=== PATIENT | male | born 1950 | race Caucasian/White ===

== ENCOUNTER 2021-07-12 11:46 | Emergency (ER) | payer MEDICARE, OTHER ==
[~2021-07-12] VITALS: Ht 167.7 cm; Wt 93.9 kg
--- NOTE | 2021-07-12 12:10 | ED Neurological Problem ---
General Chief Complaint: Neurological Problems Stated Complaint: LEFT ARM NUMBNESS,ALT BEHAVIOR Source: patient, family Exam Limitations: no limitations History of Present Illness Date Seen by Provider: Jul 12, 2021 Time Seen by Provider: 12:06 Initial Comments ER by private vehicle accompanied by his from home with reports of concern for TIA. Beginning on Thursday of this week 07/08/2021 he noticed some numbness and loss of sensation to the left arm. He had no weakness or motor function troubles. states that he and she go hiking several miles frequently. He fell on Thursday but they do state that he did not hit his head. On that same day he also developed some intermittent headaches. On Thursday the noticed him to have some slurred speech. Later Thursday they were evaluated at the [facility] and it was thought that he had some cervical radiculopathy but states that they were there after 5 PM so neck x-rays were scheduled for the following day, Thursday. No fevers chills or cough. No head trauma. He takes no medications but due to his concern for ischemic stroke beginning on Thursday of this week he began taking a baby aspirin daily.. They do not have a primary care provider and his states that they just moved here in February. He had previously noted hypertension but with diet changes and exercise his blood pressure had been running in the 130s over 80s range at home. Timing/Duration: 1 week Severity: moderate Associated Symptoms: paresthesia Allergies and Home Medications Allergies Coded Allergies: No Known Drug Allergies (Unverified , 07/12/21) Patient Home Medication List Home Medication List Reviewed: Yes Review of Systems Review of Systems Constitutional: see HPI; No chills, No fever Eyes: No Symptoms Reported Ears, Nose, Mouth, Throat: no symptoms reported Respiratory: no symptoms reported Cardiovascular: no symptoms reported Genitourinary: no symptoms reported Musculoskeletal: no symptoms reported Skin: no symptoms reported Psychiatric/Neurological: See HPI Endocrine: No Symptoms Reported Hematologic/Lymphatic: No Symptoms Reported Past Jlhvqry-Lkdrlc-Rrkcfs Hx Patient Social History Tobacco Use?: No Smoking Status: Never a Smoker Smokeless Tobacco Frequency: Never a User Use of E-Cig and/or Vaping dev: No Use of E-Cig and/or Vaping Gus: Never a User Substance use?: No Alcohol Use?: No Physical Exam Vital Signs Vital Signs - First Documented 1/21/22 11:50 Temp 36.4 Pulse 70 Resp 16 B/P (MAP) 182/87 (118) O2 Delivery Room Air Capillary Refill : Height, Weight, BMI Height: '" Weight: lbs. oz. kg; BMI Method: General Appearance: WD/WN, no apparent distress, other (Alert and oriented. Ambulates without antalgic gait to room 2. Recalls all events and can describe his history for me. His speech is clear but the feels like it is still slurred. GCS 15) HEENT: PERRL/EOMI, normal ENT inspection Respiratory: no respiratory distress, no accessory muscle use Cardiovascular: regular rate, rhythm, no murmur Gastrointestinal: normal bowel sounds, non tender, soft Neurologic/Psychiatric: alert, normal mood/affect, oriented x 3 Crainal Nerves: normal hearing, normal speech, PERRL Coordination/Gait: normal finger to nose, normal gait Motor/Sensory: no motor deficit, no pronator drift, sensory deficit Skin: normal color, warm/dry Stroke Onset of Symptoms Date of Onset of Symptoms: Jul 08, 2021 Time of Symptom Onset: 08:00 Onset of Symptoms: Yes NIH Stroke Scale Assessment Select: Initial Level of Consciousness: 0=Alert (0), Level of Consciousness- Questions: 0=Answers both month/age (0), LOC Commands: 0=Performs both tasks (0), Gaze: Normal (0), Visual Jade: 0=No visual loss (0), Facial Movement (Facial Paresis): 0=Normal symmetrical mnt (0), Motor Function-Arms Right: 0=No drift (0), Motor Function-Arms Left: 0=No drift (0), Motor Function-Legs Right: 0=No drift (0), Motor Function-Legs Left: 0=No drift (0), Limb Ataxia: 0=Absent (0), Sensory: 1=Mild to Moderate loss Mild sensory loss to the left arm from the fingers up to the shoulder. The leg is unaffected and has normal sensation. (1), Best Language: 0=No aphasia (0), Dysarthria: 0=Normal (0), Extinction & Inattention: 0=No abnormality (0), Total: 1 Stroke Thrombolytic Exclusion Age 18 or Over: Yes Acute intenal hemorrhage: No History of CVA: No Uncontrolled Coagulation Defec: No Intracranial Hemorrhage: No Severe Hypertension: No GI or Bleed: No Subarachnoid Hemorrhage: No Intracranial Neoplasm/Aneurysm: No Oral Anticoagulants: No Surgery or Trauma: No Puncture of Non-Compressible V: No Recent CPR: No Diabetic Hemorrhagic Retinopat: No Organ Biopsy: No Recent Obstetric Delivery: No Glucose: No Significant Hepatic Dysfunctio: No NIH Stoke Scale >22: No Bacterial Endocarditis: No Pericarditis: No Improving Symptoms: No Platelets: No TPA Contraindication: Yes Progress/Results/Core Measures Results/Orders Lab Results Laboratory Tests Test 07/12/21 11:56 07/12/21 11:59 07/12/21 12:40 Range/Units Glucometer 163 H 70-110 MG/DL White Blood Count 6.6 4.3-11.0 10^3/uL Red Blood Count 5.34 4.30-5.52 10^6/uL Hemoglobin 16.8 13.3-17.7 g/dL Hematocrit 48 40-54 % Mean Corpuscular Volume 90 80-99 fL Mean Corpuscular Hemoglobin 32 25-34 pg Mean Corpuscular Hemoglobin Concent 35 32-36 g/dL Red Cell Distribution Width 11.6 10.0-14.5 % Platelet Count 198 130-400 10^3/uL Mean Platelet Volume 8.5 L 9.0-12.2 fL Immature Granulocyte % (Auto) 1 % Neutrophils (%) (Auto) 62 42-75 % Lymphocytes (%) (Auto) 28 12-44 % Monocytes (%) (Auto) 7 0-12 % Eosinophils (%) (Auto) 2 0-10 % Basophils (%) (Auto) 1 0-10 % Neutrophils # (Auto) 4.1 1.8-7.8 10^3/uL Lymphocytes # (Auto) 1.8 1.0-4.0 10^3/uL Monocytes # (Auto) 0.4 0.0-1.0 10^3/uL Eosinophils # (Auto) 0.2 0.0-0.3 10^3/uL Basophils # (Auto) 0.0 0.0-0.1 10^3/uL Immature Granulocyte # (Auto) 0.0 0.0-0.1 10^3/uL Prothrombin Time 14.7 12.2-14.7 SEC INR Comment 1.1 0.8-1.4 Activated Partial Thromboplast Time 34 24-35 SEC D-Dimer 0.52 H 0.00-0.49 UG/ML Sodium Level 139 135-145 MMOL/L Potassium Level 3.5 L 3.6-5.0 MMOL/L Chloride Level 104 98-107 MMOL/L Carbon Dioxide Level 25 21-32 MMOL/L Anion Gap 10 5-14 MMOL/L Blood Urea Nitrogen 12 7-18 MG/DL Creatinine 0.99 0.60-1.30 MG/DL Estimat Glomerular Filtration Rate 81 BUN/Creatinine Ratio 12 Glucose Level 150 H 70-105 MG/DL Calcium Level 9.5 8.5-10.1 MG/DL Corrected Calcium 9.3 8.5-10.1 MG/DL Total Bilirubin 1.1 H 0.1-1.0 MG/DL Aspartate Amino Transf (AST/SGOT) 16 5-34 U/L Alanine Aminotransferase (ALT/SGPT) 20 0-55 U/L Alkaline Phosphatase 42 40-136 U/L Troponin I < 0.028 <0.028 NG/ML Total Protein 7.4 6.4-8.2 GM/DL Albumin 4.2 3.2-4.5 GM/DL My Orders Orders - SANDRA ROMAN APRN Cbc With Automated Diff (07/12/21 12:02) Protime With Inr (07/12/21 12:02) Partial Thromboplastin Time (07/12/21 12:02) Comprehensive Metabolic Panel (07/12/21 12:02) Fibrin Degradation Products (07/12/21 12:02) Troponin I Gem (07/12/21 12:02) Ua Culture If Indicated (07/12/21 12:02) Chest 1 View, Ap/Pa Only (07/12/21 12:02) Ekg Tracing (07/12/21 12:02) Accucheck Stat ONCE (07/12/21 12:02) Ed Iv/Invasive Line Start (07/12/21 12:02) Ed Iv/Invasive Line Start (07/12/21 12:02) Vital Signs Stroke Patient Q15M (07/12/21 12:02) Ct Head Wo-R/O Stroke (07/12/21 12:02) O2 (07/12/21 12:02) Intake & Output 06,14,22 (07/12/21 12:02) Monitor-Rhythm Ecg Trace Only (07/12/21 12:02) Dysphagia Screening Tool (07/12/21 12:02) Lipid Panel (07/13/21 06:00) Labetalol Injection (Normodyne Injection (07/12/21 13:00) Vital Signs/I&O 07/12/21 11:50 Temp 36.4 Pulse 70 Resp 16 B/P (MAP) 182/87 (118) O2 Delivery Room Air Departure Communication (Admissions) NAME: RODNEY DAVIDSON [facility] REC#: [id number] PT STATUS: REG ER : 1950 PHYSICIAN: SANDRA ROMAN APRN ADMIT DATE: 07/12/21/ER Draft Date of Exam:07/12/21 CHEST 1 VIEW, AP/PA ONLY INDICATION: Left upper extremity paresthesia. COMPARISON: No previous study is available for comparison at this time. FINDINGS: Heart size and pulmonary vasculature are within normal limits, and the lungs are clear, bilaterally. IMPRESSION: Unremarkable chest. Dictated on workstation # [id number] Dict: 07/12/21 1254 Trans: 07/12/21 1255 [id number] Interpreted by: PRASHANT CESPEDES MD Electronically signed by: Family Conversation NAME: RODNEY DAVIDSON [facility] REC#: [id number] PT STATUS: REG ER : 1950 PHYSICIAN: SANDRA ROMAN APRN ADMIT DATE: 07/12/21/ER Draft Date of Exam:07/12/21 CT HEAD WO-R/O STROKE PROCEDURE: CT head wo r/o stroke. TECHNIQUE: Multiple contiguous axial images were obtained through the brain without the use of intravenous contrast. Auto Exposure Controls were utilized during the CT exam to meet ALARA standards for radiation dose reduction. INDICATION: Left arm numbness. No prior studies are available for comparison. FINDINGS: There is a large mixed density subdural collection along the right cerebral convexity. This is primarily low density but there are mixed regions of increased density and septations consistent with chronic subdural collection with a likely acute component. This measures up to thickness of 2.5 cm. This does create some mass effect with midline shift right to left of approximately 7 mm. No intra-axial hemorrhage is seen. Cisterns are patent. Visualized paranasal sinuses are clear. IMPRESSION: Large mixed density subdural collection along the right cerebral convexity producing some shift of the midline from right to left. 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 Results were discussed with Sandra at the Emergency Department prior to this dictation. Dictated on workstation # [id number] Dict: 07/12/21 1255 Trans: 07/12/21 1303 [id number] Interpreted by: TAVARES YO MD Electronically signed by: EKG shows sinus rhythm at 77 QTC 435 ms QRS 105 ms no ectopy no ST segment change. Impression Primary Impression: SDH (subdural hematoma) Disposition: 02 XFER SHT-TRM HOSP Condition: Stable Transfer Transfer Reason: Exceeds level of care Time Spoke to Accepting Phy: 13:00 Departure-Patient Inst. Referrals: NO,LOCAL PHYSICIAN (PCP/Family) Primary Care Physician SANDRA ROMAN APRN Jul 12, 2021 12:10
[2021-07-12 12:11] LABS: BASOPHILS % (AUTO) 1 % (0-10); EOSINOPHILS # (AUTO) 0.2 10^3/uL (0.0-0.3); EOSINOPHILS % (AUTO) 2 % (0-10); HEMATOCRIT 48 % (40-54); HEMOGLOBIN 16.8 g/dL (13.3-17.7); LYMPHOCYTES # (AUTO) 1.8 10^3/uL (1.0-4.0); LYMPHOCYTES % (AUTO) 28 % (12-44); MEAN CORPUSCULAR HEMOGLOBIN 32 pg (25-34); MEAN CORPUSCULAR HGB CONC 35 g/dL (32-36); MEAN CORPUSCULAR VOLUME 90 fL (80-99); MEAN PLATELET VOLUME 8.5 fL (9.0-12.2); MONOCYTES # (AUTO) 0.4 10^3/uL (0.0-1.0); MONOCYTES % (AUTO) 7 % (0-12); NEUTROPHILS # (AUTO) 4.1 10^3/uL (1.8-7.8); NEUTROPHILS % (AUTO) 62 % (42-75); PLATELET COUNT 198 10^3/uL (130-400); WHITE BLOOD COUNT 6.6 10^3/uL (4.3-11.0)
[2021-07-12] MEDS ORDERED: CATHETER FLUSH 10 ML SYR IV PRN (12:15)
[2021-07-12] MEDS ORDERED: NS 100 ML (IVPB) BAG IV ONE (12:15)
[2021-07-12] MEDS ORDERED: IOHEXOL 350 MG/ML 100 ML (OMNIPAQUE 350) VIAL IV ONE (12:15)
[2021-07-12] MEDS ORDERED: HOLD METFORMIN - RECEIVED CONTRAST 20 ML VIAL IV SCH (12:15)
[2021-07-12 12:24] LABS: ALBUMIN 4.2 GM/DL (3.2-4.5); CHLORIDE 104 MMOL/L (98-107); POTASSIUM 3.5 MMOL/L (3.6-5.0); SODIUM 139 MMOL/L (135-145)
[2021-07-12 12:26] LABS: CALCIUM 9.5 MG/DL (8.5-10.1)
[2021-07-12 12:27] LABS: GLUCOSE 150 MG/DL (70-105); TOTAL PROTEIN 7.4 GM/DL (6.4-8.2)
[2021-07-12 12:28] LABS: CARBON DIOXIDE 25 MMOL/L (21-32)
[2021-07-12 12:29] LABS: BILIRUBIN,TOTAL 1.1 MG/DL (0.1-1.0)
[2021-07-12 12:30] LABS: ALKALINE PHOSPHATASE 42 U/L (40-136); CREATININE SERUM 0.99 MG/DL (0.60-1.30); GFR ESTIMATED 81
[2021-07-12 12:31] LABS: BUN/CREATININE RATIO 12
[2021-07-12 12:33] LABS: ALANINE AMINOTRANSFERASE 20 U/L (0-55)
[2021-07-12 12:35] LABS: FIBRIN DEGRADATION PRODUCTS 0.52 UG/ML (0.00-0.49); INR 1.1 (0.8-1.4); PROTHROMBIN TIME PATIENT 14.7 SEC (12.2-14.7)
--- NOTE | 2021-07-12 12:55 | Diagnostic Imaging Report ---
INDICATION: Left upper extremity paresthesia. COMPARISON: No previous study is available for comparison at this time. FINDINGS: Heart size and pulmonary vasculature are within normal limits, and the lungs are clear, bilaterally. IMPRESSION: Unremarkable chest. Dictated by: Dictated on workstation # [id number]
[2021-07-12 12:57] LABS: BILIRUBIN,URINE NEGATIVE (NEGATIVE); CLARITY,URINE CLEAR; COLOR,URINE YELLOW; GLUCOSE, URINE (UA) NEGATIVE (NEGATIVE); KETONES,URINE NEGATIVE (NEGATIVE); LEUKOCYTE ESTERASE ,URINE NEGATIVE (NEGATIVE); NITRITE,URINE NEGATIVE (NEGATIVE); PROTEIN,URINE NEGATIVE (NEGATIVE)
[2021-07-12] MEDS ORDERED: LABETALOL HCL 20 MG/4 ML VIAL IV ONE (13:00)
--- NOTE | 2021-07-12 13:04 | Diagnostic Imaging Report ---
PROCEDURE: CT head wo r/o stroke. TECHNIQUE: Multiple contiguous axial images were obtained through the brain without the use of intravenous contrast. Auto Exposure Controls were utilized during the CT exam to meet ALARA standards for radiation dose reduction. INDICATION: Left arm numbness. No prior studies are available for comparison. FINDINGS: There is a large mixed density subdural collection along the right cerebral convexity. This is primarily low density but there are mixed regions of increased density and septations consistent with chronic subdural collection with a likely acute component. This measures up to thickness of 2.5 cm. This does create some mass effect with midline shift right to left of approximately 7 mm. No intra-axial hemorrhage is seen. Cisterns are patent. Visualized paranasal sinuses are clear. IMPRESSION: Large mixed density subdural collection along the right cerebral convexity producing some shift of the midline from right to left. 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 Results were discussed with Micheal at the Emergency Department prior to this dictation. Dictated by: Dictated on workstation # [id number]
[2021-07-12 13:09] LABS: AMORPHOUS SEDIMENT,UR MOD AMOR PHOSPHATE /LPF; BACTERIA,URINE NEGATIVE /HPF; RBC,URINE 0-2 /HPF; TRIPLE PHOSPHATE CRYSTAL,UR RARE /LPF
--- NOTE | 2021-07-12 13:47 | Diagnostic Imaging Report ---
PROCEDURE: CT cervical spine without contrast. TECHNIQUE: Multiple contiguous axial images were obtained through the cervical spine without the use of intravenous contrast. Sagittal and coronal reformations were then performed. Auto Exposure Controls were utilized during the CT exam to meet ALARA standards for radiation dose reduction. INDICATION: Neck pain. COMPARISON: No prior studies are available for comparison. FINDINGS: Curvature and alignment are normal. There is multilevel degenerative disc disease with variable disc space narrowing and marginal spurring. There is multilevel facet arthropathy. The prevertebral tissues are normal. No fracture or subluxation is seen. The odontoid is intact. IMPRESSION: Cervical spondylosis. No acute bony abnormality is detected. Dictated by: Dictated on workstation # [id number]
[2021-07-12 14:22] VITALS: BP 138/86
== END 2021-07-12 14:22 | disposition short-term general hospital (02) ==
LOC: ER 11:50
DX: I62.00 Nontraumatic subdural hemorrhage, unspecified (principal)
CPT/HCPCS: 36415; 70450; 71045; 72125; 80053; 81000; 82947; 84484; 85025; 85379; 85610; 85730; 93005; 93041

== ENCOUNTER 2023-01-27 13:22 | Emergency (ER) | payer MEDICARE, OTHER ==
[~2023-01-27] VITALS: Ht 167 cm; Wt 86.0 kg
[2023-01-27 13:53] LABS: BASOPHILS % (AUTO) 1 % (0-10); MEAN CORPUSCULAR HEMOGLOBIN 31 pg (25-34); MEAN PLATELET VOLUME 8.4 fL (9.0-12.2); MONOCYTES # (AUTO) 0.4 10^3/uL (0.0-1.0)
[2023-01-27 13:55] LABS: EOSINOPHILS # (AUTO) 0.1 10^3/uL (0.0-0.3); EOSINOPHILS % (AUTO) 1 % (0-10); HEMATOCRIT 48 % (40-54); HEMOGLOBIN 16.6 g/dL (13.3-17.7); LYMPHOCYTES # (AUTO) 0.7 10^3/uL (1.0-4.0); LYMPHOCYTES % (AUTO) 16 % (12-44); MEAN CORPUSCULAR HGB CONC 35 g/dL (32-36); MEAN CORPUSCULAR VOLUME 90 fL (80-99); MONOCYTES % (AUTO) 10 % (0-12); NEUTROPHILS # (AUTO) 3.3 10^3/uL (1.8-7.8); NEUTROPHILS % (AUTO) 72 % (42-75); PLATELET COUNT 138 10^3/uL (130-400); WHITE BLOOD COUNT 4.5 10^3/uL (4.3-11.0)
[2023-01-27] MEDS ORDERED: NS IV 1000 ML 1,000 ML IV SCH (14:00)
[2023-01-27 14:02] LABS: ALBUMIN 4.2 GM/DL (3.2-4.5); POTASSIUM 3.7 MMOL/L (3.6-5.0)
[2023-01-27 14:03] LABS: CALCIUM 9.6 MG/DL (8.5-10.1)
[2023-01-27 14:04] LABS: TOTAL PROTEIN 7.3 GM/DL (6.4-8.2)
[2023-01-27 14:06] LABS: BILIRUBIN,TOTAL 1.3 MG/DL (0.1-1.0)
[2023-01-27 14:08] LABS: CREATININE SERUM 1.16 MG/DL (0.60-1.30)
[2023-01-27 14:11] LABS: MAGNESIUM 2.1 MG/DL (1.6-2.4)
--- NOTE | 2023-01-27 14:22 | ED General ---
General Chief Complaint: General Problems/Pain Stated Complaint: WEAKNESS | TIRED | HEADACHE | BALANCE ISSUES Nursing Triage Note: WITH PT STATES PT HAS BEEN INCREASINGLY WEAK OVER THE LAST WEEK WORSE THE LAST 3 DAYS, ANTERIOR HEADACHE, HX OF SUBDURAL HEMATOMA IN 06/2021 Source of Information: Patient, Family Exam Limitations: No Limitations History of Present Illness Date Seen by Provider: Jan 27, 2023 Time Seen by Provider: 13:38 Initial Comments This 72-year-old gentleman presents to the emergency room accompanied by his with complaints of significant malaise, disequilibrium, flat affect, decreased oral intake, and weakness over the past 3 days. He does not appear to have any focal neurologic deficits. He denies fever, cough, shortness of breath, diarrhea, vomiting, chest pain or urinary symptoms. 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 Patient remains independently ambulatory. Vital signs are unremarkable. His reports he did not eat anything today which is unusual for him. He will normally make himself breakfast. All he has consumed today is tea. Allergies and Home Medications Allergies Coded Allergies: No Known Drug Allergies (Unverified , 07/12/21) Patient Home Medication List Home Medication List Reviewed: Yes Review of Systems Review of Systems Constitutional: see HPI EENTM: no symptoms reported Respiratory: no symptoms reported Cardiovascular: no symptoms reported Gastrointestinal: see HPI Genitourinary: no symptoms reported Musculoskeletal: no symptoms reported Skin: no symptoms reported Psychiatric/Neurological: See HPI Hematologic/Lymphatic: No Symptoms Reported Immunological/Allergic: no symptoms reported Past Kwxyocy-Huuaiv-Dyoeuc Hx Patient Social History Tobacco Use?: No Substance use?: No Alcohol Use?: No Immunizations Up To Date First/Initial COVID19 Vaccinat: NO Past Medical History Surgery/Hospitalization HX: SUBDURAL HEMATOMA 06/2021, HTN Surgeries: Yes Eye Surgery (Cataracts) Respiratory: No Cardiac: Yes Hypertension Neurological: Yes (History subdural hematoma after riding an amusement park ride) Genitourinary: No Gastrointestinal: No Musculoskeletal: No Endocrine: No HEENT: No Cancer: No Psychosocial: No Integumentary: No Physical Exam Vital Signs Vital Signs - First Documented 01/27/23 13:32 Temp 36.8 Pulse 92 Resp 18 B/P (MAP) 140/84 (102) Pulse Ox 95 O2 Delivery Room Air Capillary Refill : Less Than 3 Seconds Height, Weight, BMI Height: '" Weight: lbs. oz. 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 Norm as Tested, Other (no focal deficit detected) Skin: Normal Color, Warm/Dry Progress/Results/Core Measures Suspected Sepsis SIRS Temperature: Pulse: 92 Respiratory Rate: 18 Laboratory Tests 01/27/23 13:45: White Blood Count 4.5 Blood Pressure 140 /84 Mean: 102 Laboratory Tests 01/27/23 13:45: Creatinine 1.16, INR Comment 1.0, Platelet Count 138, Total Bilirubin 1.3H Results/Orders Lab Results Laboratory Tests Test 01/27/23 13:45 01/27/23 14:36 01/27/23 14:39 01/27/23 16:00 Range/Units White Blood Count 4.5 4.3-11.0 10^3/uL Red Blood Count 5.30 4.30-5.52 10^6/uL Hemoglobin 16.6 13.3-17.7 g/dL Hematocrit 48 40-54 % Mean Corpuscular Volume 90 80-99 fL Mean Corpuscular Hemoglobin 31 25-34 pg Mean Corpuscular Hemoglobin Concent 35 32-36 g/dL Red Cell Distribution Width 11.8 10.0-14.5 % Platelet Count 138 130-400 10^3/uL Mean Platelet Volume 8.4 L 9.0-12.2 fL Immature Granulocyte % (Auto) 0 % Neutrophils (%) (Auto) 72 42-75 % Lymphocytes (%) (Auto) 16 12-44 % Monocytes (%) (Auto) 10 0-12 % Eosinophils (%) (Auto) 1 0-10 % Basophils (%) (Auto) 1 0-10 % Neutrophils # (Auto) 3.3 1.8-7.8 10^3/uL Lymphocytes # (Auto) 0.7 L 1.0-4.0 10^3/uL Monocytes # (Auto) 0.4 0.0-1.0 10^3/uL Eosinophils # (Auto) 0.1 0.0-0.3 10^3/uL Basophils # (Auto) 0.0 0.0-0.1 10^3/uL Immature Granulocyte # (Auto) 0.0 0.0-0.1 10^3/uL Percent Immature Platelet Fraction 0.9 0.0-7.6 % Prothrombin Time 13.6 12.2-14.7 SEC INR Comment 1.0 0.8-1.4 Activated Partial Thromboplast Time 32 24-35 SEC Sodium Level 139 135-145 MMOL/L Potassium Level 3.7 3.6-5.0 MMOL/L Chloride Level 105 98-107 MMOL/L Carbon Dioxide Level 24 21-32 MMOL/L Anion Gap 10 5-14 MMOL/L Blood Urea Nitrogen 14 7-18 MG/DL Creatinine 1.16 0.60-1.30 MG/DL Estimat Glomerular Filtration Rate 66 BUN/Creatinine Ratio 12 Glucose Level 99 70-105 MG/DL Calcium Level 9.6 8.5-10.1 MG/DL Corrected Calcium 9.4 8.5-10.1 MG/DL Magnesium Level 2.1 1.6-2.4 MG/DL Total Bilirubin 1.3 H 0.1-1.0 MG/DL Aspartate Amino Transf (AST/SGOT) 26 5-34 U/L Alanine Aminotransferase (ALT/SGPT) 24 0-55 U/L Alkaline Phosphatase 49 40-136 U/L Total Protein 7.3 6.4-8.2 GM/DL Albumin 4.2 3.2-4.5 GM/DL TSH [place] Testing 1.09 0.35-4.94 UIU/ML Influenza Type A (RT-PCR) Not Detected Not Detecte Influenza Type B (RT-PCR) Not Detected Not Detecte SARS-CoV-2 RNA (RT-PCR) Not Detected Not Detecte Urine Color YELLOW Urine Clarity CLEAR Urine pH 7.0 5-9 Urine Specific [place] 1.025 H 1.016-1.022 Urine Protein 1+ H NEGATIVE Urine Glucose (UA) NEGATIVE NEGATIVE Urine Ketones 1+ H NEGATIVE Urine Nitrite NEGATIVE NEGATIVE Urine Bilirubin 1+ H NEGATIVE Urine Urobilinogen 0.2 < = 1.0 MG/DL Urine Leukocyte Esterase NEGATIVE NEGATIVE Urine RBC (Auto) TRACE H NEGATIVE Urine RBC 0-2 /HPF Urine WBC 0-2 /HPF Urine Squamous Epithelial Cells NONE /HPF Urine Crystals PRESENT H /LPF Urine Calcium Oxalate Crystals RARE H /LPF Urine Amorphous Sediment FEW MYRNA URATES H /LPF Urine Bacteria TRACE /HPF Urine Casts NONE /LPF Urine Mucus LARGE H /LPF Urine Culture Indicated NO Troponin I < 0.028 <0.028 NG/ML My Orders Orders - HALLE QUIÑONES MD Cbc With Automated Diff (01/27/23 13:46) Comprehensive Metabolic Panel (01/27/23 13:46) Magnesium (01/27/23 13:46) Thyroid Analyzer (01/27/23 13:46) Ua Culture If Indicated (01/27/23 13:46) Ed Iv/Invasive Line Start (01/27/23 13:46) Ns Iv 1000 Ml (Sodium Chloride 0.9%) (01/27/23 14:00) Covid 19 Inhouse Test (01/27/23 14:35) Influenza A And B By Pcr (01/27/23 14:35) Troponin I [place] (01/27/23 15:54) Ekg Tracing (01/27/23 15:54) Ct Head Wo (01/27/23 15:54) Protime With Inr (01/27/23 16:26) Partial Thromboplastin Time (01/27/23 16:26) Labetalol Injection (Normodyne Injection (01/27/23 17:15) Labetalol Injection (Normodyne Injection (01/27/23 18:15) Hydralazine Injection (Hydralazine Injec (01/27/23 19:45) Medications Given in ED Current Medications Medications Dose Ordered Sig/Jeannette Route Start Time Stop Time Status Last Admin Dose Admin Hydralazine HCl 10 mg ONCE ONCE IV 01/27/23 19:45 01/27/23 19:46 DC 01/27/23 19:49 10 MG Labetalol HCl 10 mg ONCE ONCE IV 01/27/23 18:15 01/27/23 18:16 DC 01/27/23 18:13 10 MG Vital Signs/I&O 01/27/23 01/27/23 13:32 20:52 Temp 36.8 Pulse 92 78 Resp 18 15 B/P (MAP) 140/84 (102) 145/83 Pulse Ox 95 97 O2 Delivery Room Air Room Air Capillary Refill : Less Than 3 Seconds Blood Pressure Mean: 102 Progress Note #1: Time: 15:02 Progress Note Patient was interviewed and examined at 1338. was also interviewed. Basic labs were obtained and interpreted by me. CBC, CMP, magnesium, and thyroid analyzer were all unremarkable. A relative lymphopenia was noted on the CBC which triggered screening for COVID-19. Nasal swab result is pending. Urinalysis is also pending. Patient received a liter of IV normal saline. Progress Note #2: Time: 15:58 Progress Note Work-up has thus far been unremarkable. Urinalysis demonstrated minor abnormalities that do not appear to contribute to his clinical condition. Few crystals were present and specific gravity was high which may indicate some degree of fluid volume deficit. Influenza and COVID-19 swabs were negative. I offered further evaluation with EKG and troponin. His was concerned about his extreme fatigue being possibly related to cardiac problems. He has no known cardiac disease. EKG and troponin have been ordered. He also has had some minor headache associated with this syndrome over the past few days. He does have history of the intracranial hemorrhage. CT of the head will be obtained to ensure his headache and disequilibrium are not related to any further intracranial problems. If these remaining studies are unremarkable, he will be discharged home with close home monitoring and return precautions. Progress Note #3: Time: 18:49 Progress Note I received a call from Dr. Coello, radiologist, describing a large subdural hematoma on the left with a one-point centimeter midline shift and largest dimension of 3.3 cm. The prior subdural hematoma on the right has since resolved. I contacted [facility] where patient was treated previously for his subdural hematoma. They are on admission diversion. I next called [facility] in [place]. They also were on admission diversion with a 24-hour waiting list. [facility] did have admission capacity and has neurosurgery on-call. [facility] was initially contacted at 1630. I received definite acceptance at 1806. We are presently awaiting helicopter for transport. The first helicopter deve loped a mechanical problem and was canceled. A second helicopter will hopefully be in route after 1900. Ground transport is not available until after 1999, and patient has a low threshold for decompensation given the current degree of midline shift and herniation with an acute component to this hemorrhage per radiologist interpretation. Air transport is therefore appropriate. Patient has been updated with the plan. Blood pressure has been at the margins of acceptable in the 140s systolic. He received labetalol 5 mg followed by labetalol 10 mg. Current blood pressure is 145/90. I will consider giving an additional dose of labetalol. Heart rate is presently 77. Patient is still neurologically intact. Troponin and EKG were reviewed and were unremarkable. Progress Note #4: Time: 19:36 Progress Note The helicopter ETA is approximately 1 hour from now. I am not satisfied with blood pressure control with labetalol. Hydralazine 10 mg IV is being administered for better blood pressure control. ECG Initial ECG Impression Date: Jan 27, 2023 Initial ECG Impression Time: 16:13 Initial ECG Rate: 80 Initial ECG Rhythm: Normal Sinus Comment Sinus rhythm with no ST elevation or depression. No abnormal intervals or axis deviation. Diagnostic Imaging Diagonstic Imaging: CT Plain Films/CT/US/NM/MRI: head Comments NAME: RODNEY DAVIDSON MED REC#: [id number] PT STATUS: REG ER : 1950 PHYSICIAN: HALLE QUIÑONES MD ADMIT DATE: 01/27/23/ER Signed Date of Exam:01/27/23 CT HEAD WO INDICATION: Disequilibrium and weakness, prior history of intracranial bleed. TECHNIQUE: Multiple contiguous axial images were obtained through the brain without the use of intravenous contrast. Auto Exposure Controls were utilized during the CT exam to meet ALARA standards for radiation dose reduction. Comparison made to 07/12/2021. There is a large subdural hematoma over the left convexity measuring about 3.3 cm in transverse diameter. The hematoma has mixed density suggesting partially acute and partially subacute age. There is significant midline shift with about 1.8 cm in midline shift with subfalcine herniation. Previous right-sided subdural hematoma has resolved compared to 07/12/2021. There is no fracture. There is no overt territorial ischemia. IMPRESSION: Large left-sided subdural hematoma with large amount of midline shift. Results were called to Dr. Haynes in the Emergency Room at [place]. Dictated by: Dictated on workstation # [id number] Dict: 01/27/23 1618 Trans: 01/27/23 1658 CV [id number] Interpreted by: CAROLYN COELLO MD Electronically signed by: CAROLYN COELLO MD 01/27/23 1658 Critical Care Note Critical Care Start Time: 16:20 Total Time (minutes) 35 Progress 35 minutes of critical care time was dedicated to this patient including assessment of CT, discussion with radiologist, transfer arrangements, documentation, bedside care, discussion and shared decision making with patient and , blood pressure management, etc. Departure Impression Primary Impression: SDH (subdural hematoma) Additional Impressions: Malaise Disequilibrium Disposition: 02 XFER SHT-TRM HOSP Condition: Stable Transfer Transfer Reason: Exceeds level of care Time Spoke to Accepting Phy: 18:06 (Acceptance to Dr. Adhikari conveyed by transfer center) Transfer Progress Notes Transfer accepted by Dr. Adhikari Transfer Time: 20:52 Transfer Facility: [facility] Method of Transfer: Air Departure-Patient Inst. Referrals: NO,LOCAL PHYSICIAN (PCP/Family) Primary Care Physician HALLE QUIÑONES MD Jan 27, 2023 14:22
[2023-01-27 14:31] LABS: TSH (THYROID ANALYZER) 1.09 UIU/ML (0.35-4.94)
[2023-01-27 15:17] LABS: CLARITY,URINE CLEAR; COLOR,URINE YELLOW; GLUCOSE, URINE (UA) NEGATIVE (NEGATIVE); KETONES,URINE 1+ (NEGATIVE); PROTEIN,URINE 1+ (NEGATIVE)
[2023-01-27 15:18] LABS: LEUKOCYTE ESTERASE ,URINE NEGATIVE (NEGATIVE); NITRITE,URINE NEGATIVE (NEGATIVE)
[2023-01-27 15:21] LABS: AMORPHOUS SEDIMENT,UR FEW AMOR URATES /LPF; BACTERIA,URINE TRACE /HPF; BILIRUBIN,URINE 1+ (NEGATIVE); CALCIUM OXALATE CRYSTALS,UR RARE /LPF; RBC,URINE 0-2 /HPF; WBC,URINE 0-2 /HPF
--- NOTE | 2023-01-27 16:26 | Diagnostic Imaging Report ---
INDICATION: Disequilibrium and weakness, prior history of intracranial bleed. TECHNIQUE: Multiple contiguous axial images were obtained through the brain without the use of intravenous contrast. Auto Exposure Controls were utilized during the CT exam to meet ALARA standards for radiation dose reduction. Comparison made to 07/12/2021. There is a large subdural hematoma over the left convexity measuring about 3.3 cm in transverse diameter. The hematoma has mixed density suggesting partially acute and partially subacute age. There is significant midline shift with about 1.8 cm in midline shift with subfalcine herniation. Previous right-sided subdural hematoma has resolved compared to 07/12/2021. There is no fracture. There is no overt territorial ischemia. IMPRESSION: Large left-sided subdural hematoma with large amount of midline shift. Results were called to Dr. Haynes in the Emergency Room at [place]. Dictated by: Dictated on workstation # [id number]
[2023-01-27 16:40] LABS: PROTHROMBIN TIME PATIENT 13.6 SEC (12.2-14.7)
[2023-01-27] MEDS ORDERED: LABETALOL 5 mg/ml 4 ML SINGLE DOSE SYRINGE IV ONE ×2 (17:15→18:15)
[2023-01-27] MEDS ORDERED: hydrALAZINE INJECTION 20 MG/ML VIAL IV ONE (19:45)
[2023-01-27 20:52] VITALS: BP 145/83
== END 2023-01-27 20:52 | disposition home or self-care (01) ==
LOC: EDUNIT# 13:22 → ER 13:24
DX: S06.5XAA Traumatic subdural hemorrhage with loss of consciousness status unknown, initial encounter (principal); E87.8 Other disorders of electrolyte and fluid balance, not elsewhere classified; R53.81 Other malaise; Z20.822 Contact with and (suspected) exposure to COVID-19; X58.XXXA Exposure to other specified factors, initial encounter
CPT/HCPCS: 36415; 70450; 80053; 81000; 83735; 84443; 84484; 85025; 85610; 85730; 87636; 93005

== ENCOUNTER → 2023-02-04 | Outpatient (CLI) | payer MEDICARE, OTHER ==
[2023-02-04 12:34] LABS: ABSOLUTE RETIC # 180 10e9/uL (24-90); BASOPHILS % (AUTO) 0 % (0-10); EOSINOPHILS % (AUTO) 0 % (0-10); HEMATOCRIT 45 % (40-54); HEMOGLOBIN 15.8 g/dL (13.3-17.7); LYMPHOCYTES % (AUTO) 39 % (12-44); MEAN CORPUSCULAR HEMOGLOBIN 32 pg (25-34); MEAN CORPUSCULAR HGB CONC 35 g/dL (32-36); MEAN CORPUSCULAR VOLUME 90 fL (80-99); MEAN PLATELET VOLUME 8.9 fL (9.0-12.2); MONOCYTES # (AUTO) 0.8 10^3/uL (0.0-1.0); MONOCYTES % (AUTO) 8 % (0-12); NEUTROPHILS # (AUTO) 5.3 10^3/uL (1.8-7.8); NEUTROPHILS % (AUTO) 52 % (42-75); PLATELET COUNT 209 10^3/uL (130-400); RETICULOCYTE % 3.61 % (0.50-2.40)
[2023-02-04 12:42] LABS: ALBUMIN 3.6 GM/DL (3.2-4.5)
[2023-02-04 12:43] LABS: POTASSIUM 4.1 MMOL/L (3.6-5.0)
[2023-02-04 12:44] LABS: CALCIUM 9.9 MG/DL (8.5-10.1)
[2023-02-04 12:45] LABS: TOTAL PROTEIN 6.6 GM/DL (6.4-8.2)
[2023-02-04 12:47] LABS: BILIRUBIN,TOTAL 0.8 MG/DL (0.1-1.0)
[2023-02-04 12:49] LABS: CREATININE SERUM 0.98 MG/DL (0.60-1.30)
[2023-02-04 13:03] LABS: BAND NEUTROPHILS 0 %; BASOPHILS % (MANUAL) 0 %; EOSINOPHILS % (MANUAL) 0 %; LYMPHOCYTES % (MANUAL) 35 %; MONOCYTES % (MANUAL) 15 %; NEUTROPHILS % (MANUAL) 50 %
[2023-02-04 13:04] LABS: RBC MORPH NORMAL
[2023-02-04 13:20] LABS: WHITE BLOOD COUNT 10.2 10^3/uL (4.3-11.0)
== END ==
LOC: LAB 11:54
DX: D69.6 Thrombocytopenia, unspecified (principal)
CPT/HCPCS: 36415; 80053; 83615; 85007; 85027; 85045; 85055; 85250; 85270